=== PATIENT | female | born 1980 ===

== ENCOUNTER 2017-02-05 19:14 | Emergency (ER) | payer OTHER ==
[2017-02-05 19:24] VITALS: BP 126/72; PULSE 74; RESP 18; TEMP 98.5; O2SAT 99
--- NOTE | 2017-02-05 20:22 | ED PDOC ---
HPI: Back Time Seen by Provider: 02/05/17 19:44 Chief Complaint (Nursing): Back Pain Chief Complaint (Provider): Back Pain History Per: Patient History/Exam Limitations: no limitations Onset/Duration Of Symptoms: Days (x 3 months) Current Symptoms Are (Timing): Still Present Additional Complaint(s): Madyson is a 36 y/o female who presents to the ED complaining of back pain for the past 3 months. States that 4 years ago she suffered a work accident, where 2.5 lbs of ice fell on her back. She did not seek medical help at that time. About 2-3 months ago, she developed back pain preventing her from doing her job at the [employer] she works at. Patient has seen multiple doctors, including her PMD Dr. Cast, and Dr. Danny Cantrell in [place]. Had an MRI showing a bulging disc and pinched nerve. States she has been seeing a chiropractor for 2 months and physical therapy for 1 month. Patient reports taking Naprosyn and a muscle relaxant but her pain continues to worsen. She was referred to a stars specialist at one point, but cant see them since theyre not covered under her workers compensation. Patient is concerned about needing an extension for her disability leave from work. Has an appointment booked with Dr. Cast on . PMD: Dr. Cast Past Medical History Reviewed: Historical Data, Nursing Documentation, Vital Signs Vital Signs: Last Vital Signs Temp 98.5 F 02/05/17 19:22 Pulse 74 02/05/17 19:22 Resp 18 02/05/17 19:22 BP 126/72 02/05/17 19:22 Pulse Ox 99 02/05/17 19:22 - Family History Family History: States: Unknown Family Hx - Social History Current smoker - smoking cessation education provided: No Alcohol: None Drugs: Denies - Home Medications Home Medications: Ambulatory Orders Medication Instructions Recorded Ketorolac Tromethamine [Toradol] 10 mg PO TID #20 cap 02/05/17 - Allergies Allergies/Adverse Reactions: Allergies Allergy/AdvReac Type Severity Reaction Status Date / Time No Known Allergies Allergy Verified 02/05/17 19:45 Review of Systems ROS Statement: Except As Marked, All Systems Reviewed And Found Negative Musculoskeletal: Positive for: Back Pain Physical Exam - Reviewed Nursing Documentation Reviewed: Yes Vital Signs Reviewed: Yes - Physical Exam Appears: Positive for: Non-toxic, No Acute Distress Head Exam: Positive for: ATRAUMATIC, NORMAL INSPECTION, NORMOCEPHALIC Skin: Positive for: Normal Color, Warm, Dry Eye Exam: Positive for: EOMI, Normal appearance, PERRL Neck: Positive for: Normal, Painless ROM Back: Positive for: Normal Inspection. Negative for: Vertebral Tenderness Extremity: Positive for: Normal ROM. Negative for: Pedal Edema, Deformity Neurologic/Psych: Positive for: Alert, Oriented. Negative for: Motor/Sensory Deficits - ECG O2 Sat by Pulse Oximetry: 99 (RA) Pulse Ox Interpretation: Normal Medical Decision Making Medical Decision Making: Time: 20:11 Clinical Impression: Back pain Plan: --Urine test --Toradol 30 mg IM given --Advised patient on the importance of follow up with Dr. Cast for further imaging and to discuss the need for surgery. --Patient is medically stable for discharge home, and will be given Rx for Toradol for pain management. -There is agreement to discharge plan. Return if symptoms persist or worsen. Scribe Attestation: Documented by Xenia Stinson, acting as a scribe for Alize Samuel PA-C Provider Scribe Attestation: All medical record entries made by the Scribe were at my direction and personally dictated by me. I have reviewed the chart and agree that the record accurately reflects my personal performance of the history, physical exam, medical decision making, and the department course for this patient. I have also personally directed, reviewed, and agree with the discharge instructions and disposition. Disposition - Clinical Impression Clinical Impression: Back pain - Patient ED Disposition Is Patient to be Admitted: No Counseled Patient/Family Regarding: Diagnosis, Need For Followup, Rx Given - Disposition Referrals: [facility] [Outside] Disposition Time: 20:22 Condition: STABLE Prescriptions: Ketorolac Tromethamine [Toradol] 10 mg PO TID #20 cap Instructions: Back Pain (ED) Forms: [facility] (Sinhala), [facility] ED School/Work Excuse
== END 2017-02-05 21:00 | disposition home or self-care (01) ==
LOC: H.ER 19:14
DX: M54.9 Dorsalgia, unspecified (principal)
CPT/HCPCS: 81025; 96372; 99282; J1885